=== PATIENT | female | born 1960 | race Caucasian/White ===

== ENCOUNTER → 2016-12-02 | Outpatient (CLI) | payer MEDICARE, MEDICAID ==
[~2016-12-02] MED LIST: CALC-694 PO; CITA20TA4 PO; DEXL60CA PO; FERR27TA PO; HYDR-3812 PO; MTF500T PO; MULT-890 PO; OLME1TAB25 PO; TRAM50TA2 PO
--- NOTE | 2016-12-02 14:28 | Diagnostic Imaging Report ---
EXAMINATION: Ultrasound of the left breast. INDICATION: Asymmetry seen in the upper aspect of the left breast. Followup of the 12 o'clock lesion. FINDINGS: A stable 1.6 x 0.4 x 1.2 cm hypoechoic lobulated lesion is seen at the 12 o'clock zone 10 cm from the nipple. No significant change from 10/11/2015. No internal flow is demonstrated on color Doppler assessment. IMPRESSION: Stable benign-appearing 1.6 cm elongated hypoechoic lesion at the 12 o'clock zone. This is potentially an intramammary lymph node. A 12 month followup mammogram and ultrasound would be recommended to prove further stability. ACR BI-RADS Category 3: Probably benign findings. Dictated by: Dictated on workstation # [id number]
--- NOTE | 2016-12-02 14:31 | Diagnostic Imaging Report ---
EXAMINATION: Bilateral diagnostic mammogram with a Computer Aided Detection (CAD) system. INDICATION: Followup asymmetry along the upper aspect of the left breast. COMPARISON: 09/21/2015. FINDINGS: The breasts are composed of scattered fibroglandular densities. There is a nodule in the central aspect of the left breast, stable from multiple prior exams. Focal asymmetry with linear morphology in the central upper aspect is again noted. The right breast is stable. IMPRESSION: Stable left breast focal asymmetry in the superior aspect inferiorly of benign etiology. An ultrasound evaluation is pending. ACR BI-RADS Category 0: Incomplete. (Needs additional imaging evaluation). Result letter will be mailed to the patient. Note: At least 10% of breast cancer is not imaged by mammography. Dictated by: Dictated on workstation # [id number]
== END ==
LOC: RAD 13:32
PROVIDERS: ATTEND Nurse Practitioner Adult Health
DX: R92.8 Other abnormal and inconclusive findings on diagnostic imaging of breast (principal)
CPT/HCPCS: 76642; 77066